=== PATIENT | female | born 1990 | race Caucasian/White ===

== ENCOUNTER 2022-03-20 14:49 | Inpatient (IN) | payer OTHER ==
[~2022-03-20] VITALS: Ht 154.9 cm; Wt 59.0 kg
--- NOTE | 2022-03-20 15:24 | NUR ---
SE RECIBE PTE FEMENINA ALERTA Y ORIENTADA EN [place] ESFERAS REFIERE HERIDA EN AREA DE [place] R+, LA MISMA SE OBSERVA CON ERITEMA, EXUDADO DE CANTIDAD ABUNDANTE Y SANGUINOLENTO. SE ADRIANA CUIDADO LOCAL, SE CUBRE AREA. PTE PROVIENE DE CRUCERO REFIERE SE LE FUE ADMINISTRADO MEDICAMENTOS. SE OBSERVA CON ACCESO VENOSO EN ANTEBRAZO R+.
--- NOTE | 2022-03-20 16:14 | NUR ---
SE EDUCA A PTE SOBRE [place] MEDICO ESTA REFIERE ENTENDER. SE [place] [facility] DE [facility]ATOR[facility] UTILIZANDO MEDIDAS ASEPTICAS. SE [place] H/L A PTE Y SE ADMINISTRA MEDICAMENTOS LOS CUALES TOLERA. SE NOTIFICA ESTUDIO DE RX PENDIENTE A REALIZAR.
== END 2022-03-27 18:10 | disposition home or self-care (01) | DRG 571 ==
LOC: ER 14:49 → MEDI 23:05 → MEDJ 03-21 17:02
PROVIDERS: ADMIT Internal Medicine; ATTEND Internal Medicine
PROC: 0JBN0ZZ Excision of Right Lower Leg Subcutaneous Tissue and Fascia, Open Approach (ICD-10-PCS; principal; 2022-03-22)
DX: L02.415 Cutaneous abscess of right lower limb (principal); L97.813 Non-pressure chronic ulcer of other part of right lower leg with necrosis of muscle; L08.89 Other specified local infections of the skin and subcutaneous tissue; B95.61 Methicillin susceptible Staphylococcus aureus infection as the cause of diseases classified elsewhere; D72.828 Other elevated white blood cell count; Z20.822 Contact with and (suspected) exposure to COVID-19